=== PATIENT | female | born 1980 | race African-American/Black ===

== ENCOUNTER 2017-07-01 00:47 | Inpatient (IN) | payer OTHER ==
[~2017-07-01 00:47] MED LIST: DEXTROSE 5%-LACTATED RINGERS 500 ML IV ONE
[2017-07-01] MEDS ORDERED: DEXTROSE 5%-LACTATED RINGERS 500 ML IV ONE (01:47)
[2017-07-01 07:27] LABS: BASOPHIL 0.5 % (0-2.0); EOSINOPHIL 0.7 % (0-4.5); MCH 28.8 pg (25.7-33.7); MCHC 33.4 g/dl (32.0-36.0); MEAN CELL VOLUME 86.2 fl (80-96); MEAN PLT VOLUME 8.8 fl (7.5-11.1); NEUTROPHILS 68.5 % (42.8-82.8); PLATELET COUNT 193 K/MM3 (134-434); RDW 14.9 % (11.6-15.6); WHITE BLOOD COUNT 8.8 K/mm3 (4.0-10.0)
[2017-07-01 07:46] VITALS: BMI 35.4
[2017-07-01 08:07] LABS: ANION GAP 9 (8-16); CALCIUM 8.6 mg/dL (8.5-10.1); CO2 24 mmol/L (21-32); CREATININE 0.6 mg/dL (0.55-1.02); GLUCOSE,RANDOM 82 mg/dL (74-106)
[2017-07-01] MEDS ORDERED: MISOPROSTOL 100 MCG TABLET NR ONE (08:15)
[2017-07-01 08:19] LABS: ACTIVATED PTT 26.3 SECONDS (26.9-34.4); INR 0.96 (0.82-1.09); PROTHROMBIN TIME (PATIENT) 10.5 SEC (9.98-11.88)
[2017-07-01] MEDS: ACETAMINOPHEN 325 MG TABLET (FP) PO PRN ×2 (08:45→13:53)
[2017-07-01] MEDS: D5W-LR W/ 20 UNITS OXYTOCIN 1,000 ML IV SCH ×2 (08:45→14:46)
[2017-07-01] MEDS: IBUPROFEN 600 MG TABLET (FP) PO PRN ×2 (08:45→13:52)
--- NOTE | 2017-07-01 08:53 | HP ---
Past Medical History - Primary Care Physician PCP:: Nery Malloy - Admission Chief Complaint: 36yo P1 with clear PROM, +ctx, no VB, + FM History of Present Illness: 1.Class 1 obesity - Sleep study referred, early GCT negative Missed sleep study 2. history states SOM+ - negative Lupus w/up 3. Anemia - Iron BID 4. h/o Appendectomy 5. h/o 10lb 6.Tdap 06/15/17 History Source: Patient Limitations to Obtaining History: No Limitations - Past Medical History ...: 2 ...Para: 1 ...Term: 1 ...: 0 ...Spon : 0 ...Induced : 0 ...Multiple Gestation: 0 ...LMP: 10/06/16 ... Weeks Gestation by Dates: 38.1 ...EDC by Dates: 07/13/17 ...EDC by Sono: 07/13/17 Heme/Onc: Yes: Anemia - Past Surgical History Past Surgical History: Yes: None, Appendectomy Hx Myomectomy: No Hx Transabdominal Cerclage: No - Smoking History Smoking history: Never smoked Have you smoked in the past 12 months: No - Alcohol/Substance Use Hx Alcohol Use: No Home Medications - Allergies Allergies/Adverse Reactions: Allergies Allergy/AdvReac Type Severity Reaction Status Date / Time No Known Allergies Allergy Verified 07/01/17 07:27 - Home Medications Home Medications: Ambulatory Orders Ascorbic Acid [Vitamin C -] 500 mg PO DAILY 07/01/17 Ferrous Gluconate [Iron] 256 mg PO DAILY 07/01/17 Vit No.130/Iron/FA [ Vitamins] 1 each PO DAILY 07/01/17 Review of Systems - Review of Systems Constitutional: reports: No Symptoms Eyes: reports: No Symptoms HENT: reports: No Symptoms Neck: reports: No Symptoms Cardiovascular: reports: No Symptoms Respiratory: reports: No Symptoms Genitourinary: reports: Other ([place] of clear fluid) Breasts: reports: No Symptoms Reported Musculoskeletal: reports: No Symptoms Integumentary: reports: No Symptoms Neurological: reports: No Symptoms Endocrine: reports: No Symptoms Hematology/Lymphatic: reports: No Symptoms Psychiatric: reports: No Symptoms Physical Exam - Maternity Vital Signs: Vital Signs Temperature 98.1 F 07/01/17 07:37 Pulse Rate 56 L 08/23/17 08:30 Respiratory Rate 20 07/01/17 08:30 Blood Pressure 129/66 07/01/17 08:30 O2 Sat by Pulse Oximetry (%) 100 07/01/17 08:30 Constitutional: Yes: Well Nourished, No Distress Eyes: Yes: WNL HENT: Yes: WNL Neck: Yes: WNL Cardiovascular: Yes: WNL Lungs: Clear to auscultation Breast(s): Yes: WNL - Abdominal Exam/OB Fundal Height: 38 Number of Fetuses: Single Presentation: Vertex Contractions: Yes Monitor Mode: External Heart Rate Location: Midline Category: I Accelerations: Uniform Decelerations: None - Vaginal Exam/OB Vaginal Bleediing: No Speculum Exam: No Dilatation (cm): deferr Amniotic Membrane Status: Ruptured Nitrazine Test: Positive Amniotic Fluid: Yes: Clear Presentation: Vertex/Position - Physical Exam Musculoskeletal: Yes: WNL Extremities: Yes: WNL Edema: No Integumentary: Yes: WNL ...Motor Strength: WNL Psychiatric: Yes: WNL - Labs Lab Results: CBC, BMP 07/01/17 01:00 07/01/17 01:45 Assessment/Plan 36 yo P1 @ 38.1 with PROM Fetus Category 1 GBS negative Admit to L&D Declines pain management IVF, Labs will augment with Pitocin as needed
[2017-07-01 08:59] LABS: ARTERIAL BLD GAS O2 SATURATION 37.2 % (90-98.9); ARTERIAL BLOOD GAS HCO3 23.4 meq/L (22-26); ARTERIAL BLOOD GAS PO2 19.4 mmHg (80-100)
[2017-07-01 09:00] LABS: ARTERIAL BLD GAS O2 SATURATION 80.3 % (90-98.9); ARTERIAL BLOOD GAS BASE EXCESS -3.1 meq/l (-2-2); ARTERIAL BLOOD GAS HCO3 20.3 meq/L (22-26); ARTERIAL BLOOD GAS PO2 35.3 mmHg (80-100)
[2017-07-01] MEDS ORDERED: SENNOSIDES/DOCUSATE COMBO (SENNA PLUS) TABLET (UD) PO PRN (09:12)
[2017-07-01] MEDS ORDERED: BENZOCAINE 28 GM HEMORRHOIDAL OINTMENT TP PRN (09:13)
[2017-07-01] MEDS ORDERED: BISACODYL 10 MG SUPP.RECT RC PRN (09:13)
[2017-07-01] MEDS ORDERED: WITCH HAZEL 50% (TUCKS) 40 PAD/JAR PAD TP PRN (09:14)
[2017-07-01] MEDS ORDERED: BENZOCAINE 20% 57 GM BOTTLE TP PRN (09:14)
[2017-07-01] MEDS ORDERED: METHYLERGONOVINE MALEATE 0.2 MG/1 ML AMP IM PRN (09:14)
[2017-07-01] MEDS ORDERED: DEXTROSE 5%-LACTATED RINGERS 500 ML IV SCH ×2 (09:45)
[2017-07-01] MEDS ORDERED: TUBERCULIN PPD 5 TU/0.1ML SYRINGE (IN PATIENT USE ONLY) ID ONE (10:00)
--- NOTE | 2017-07-02 01:59 | PN ---
Post Progress Note - Subjective Subjective: Patient without acute complaints. Reports tolerating oral intake without nausea or vomiting. Ambulating without dizziness. Denies fevers or chills. Pain well controlled with oral pain medication. without difficulty. Passing flatus. Post Day: 1 Type of Delivery: Vital Signs: Vital Signs Temperature 98.0 F 07/01/17 22:00 Pulse Rate 60 07/01/17 22:00 Respiratory Rate 18 07/01/17 22:00 Blood Pressure 106/39 07/01/17 22:00 O2 Sat by Pulse Oximetry (%) 100 07/01/17 21:00 Breast Exam: Yes: Soft. No: Cracked Nipples Uterus: Yes: Fundus Firm, Fundus below umbilicus Abdomen/GI: Yes: Abdomen soft, Passing flatus, Tolerating PO. No: Tender Lochia: Yes: Serosa Lochia, amount: Small Extremities: Yes: Calves non-tender. No: Edema Activity: Ambulating - Labs Labs: CBC WBC 8.8 K/mm3 (4.0-10.0) 07/01/17 01:00 RBC 3.98 M/mm3 (3.60-5.2) 07/01/17 01:00 Hgb 11.5 GM/dL (10.7-15.3) 07/01/17 01:00 Hct 34.3 % (32.4-45.2) 07/01/17 01:00 MCV 86.2 fl (80-96) 07/01/17 01:00 MCH 28.8 pg (25.7-33.7) 07/01/17 01:00 MCHC 33.4 g/dl (32.0-36.0) 07/01/17 01:00 RDW 14.9 % (11.6-15.6) 07/01/17 01:00 Plt Count 193 K/MM3 (134-434) 07/01/17 01:00 MPV 8.8 fl (7.5-11.1) 07/01/17 01:00 Neutrophils % 68.5 % (42.8-82.8) 07/01/17 01:00 Lymphocytes % 22.3 % (8-40) 07/01/17 01:00 Monocytes % 8.0 % (3.8-10.2) 07/01/17 01:00 Eosinophils % 0.7 % (0-4.5) 07/01/17 01:00 Basophils % 0.5 % (0-2.0) 07/01/17 01:00 Laboratory Tests 07/02/17 07:30 Hgb 10.5 L Hct 31.8 L Assessment/Plan 36 yo PPD # 1 s/p , afebrile, vital signs stable, doing well 1. Continue routine care. 2. AM CBC stable 3. Rh positive status, no rhogam indicated. 4. Encourage ambulation 5. Continue oral pain medication 6. Anticipate discharge home day #2
[2017-07-02 08:41] LABS: BASOPHIL 0.3 % (0-2.0); EOSINOPHIL 0.8 % (0-4.5); MCH 28.6 pg (25.7-33.7); MCHC 32.9 g/dl (32.0-36.0); MEAN PLT VOLUME 8.6 fl (7.5-11.1); NEUTROPHILS 76.2 % (42.8-82.8); PLATELET COUNT 166 K/MM3 (134-434); RDW 14.8 % (11.6-15.6); WHITE BLOOD COUNT 12.1 K/mm3 (4.0-10.0)
[2017-07-02] MEDS ORDERED: DIPHTH,PERTUSS(ACELL),TET 0.5 ML DISP.SYRIN IM ONE (10:00)
[2017-07-02] MEDS: IBUPROFEN 600 MG TABLET (FP) PO PRN (14:02)
[2017-07-02] MEDS: ACETAMINOPHEN 325 MG TABLET (FP) PO PRN (14:03)
[2017-07-03 12:25] VITALS: BP 109/64; PULSE 77; TEMP 98.3
--- NOTE | 2017-07-28 12:49 | DS ---
Physical Exam-[employer]ICE [employer]IST Vital Signs: Vital Signs Temperature 98.3 F 07/03/17 10:00 Pulse Rate 77 07/03/17 10:00 Respiratory Rate 20 07/03/17 10:00 Blood Pressure 109/64 07/03/17 10:00 O2 Sat by Pulse Oximetry (%) 100 07/01/17 21:00 Constitutional: Yes: Well Nourished HENT: Yes: WNL Neck: Yes: WNL Cardiovascular: Yes: WNL Respiratory: Yes: WNL Gastrointestinal: Yes: WNL, Normal Bowel Sounds, Soft Pelvis: Yes: WNL External Genitalia: Yes: Normal Vaginal Exam: Yes: Normal ....Post : Yes: Uterus firm, Uterus non-tender Breast(s): Yes: WNL Musculoskeletal: Yes: WNL Extremities: Yes: WNL Integumentary: Yes: WNL Neurological: Yes: WNL ...Motor Strength: WNL Labs: CBC, BMP 07/02/17 07:30 07/01/17 01:45 Delivery - Delivery Vaginal Delivery: No Problems Type of Anesthesia: None Episiotomy/Laceration: None EBL (cc): 500 Delivery, Single - Stages of Labor Date 1st Stage Initiatied: 07/01/17 Time 1st Stage Initiated: 00:00 Date 2nd Stage Initiated: 07/01/17 Time 2nd Stage Initiated: 06:35 Date of Delivery: 07/01/17 Time of Delivery: 06:41 Time Placenta Delivered: 06:45 - 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 Gender: Male Weight: 6 lb 12 oz Position: OA Total Hours ROM (Hrs/Mins): 6hrs 45min - 1 Minute Total Score: 9 5 Minutes Total Score: 9 - Feeding Plan Initial Plan: Elected not to breastfeed exclusively throughout hospitalization Discharge Summary Reason For Visit: LABOR Condition: Good - Instructions Diet, Activity, Other Instructions: regular diet, follow up office 4 weeks Referrals: Nery Malloy MD [Staff Physician] - Disposition: HOME - Home Medications Comprehensive Discharge Medication List: Ambulatory Orders Ascorbic Acid [Vitamin C -] 500 mg PO DAILY 07/01/17 Ferrous Gluconate [Iron] 256 mg PO DAILY 07/01/17 Vit No.130/Iron/FA [ Vitamins] 1 each PO DAILY 07/01/17 Ibuprofen [Motrin -] 600 mg PO TID #30 tablet 07/02/17
== END 2017-07-03 12:15 | disposition home or self-care (01) | DRG 560 ==
LOC: JLDR 00:47 → J3W 09:26
PROVIDERS: ADMIT Obstetrics & Gynecology; ATTEND Obstetrics & Gynecology
PROC: 10E0XZZ Delivery of Products of Conception, External Approach (ICD-10-PCS; principal; 2017-07-01)
DX: O42.92 Full-term premature rupture of membranes, unspecified as to length of time between rupture and onset of labor (principal); O99.214 Obesity complicating childbirth; E66.8 Other obesity; Z68.35 Body mass index [BMI] 35.0-35.9, adult; O99.02 Anemia complicating childbirth; Z3A.38 38 weeks gestation of pregnancy; Z37.0 Single live birth
CPT/HCPCS: 36415; 36600; 59409; 80048; 82803; 85025; 85610; 85730; 86593; 86850; 86900; 86901

== ENCOUNTER 2021-03-01 08:22 | Inpatient (IN) | payer OTHER ==
[2021-03-01] MEDS ORDERED: ELECTROLYTE-148 SOLN 1,000 ML IV SCH (09:15)
[2021-03-01] MEDS ORDERED: OXYTOCIN 30 UNITS in 0.9% NS 30 UNIT/500 ML INFUS.BAG IVPB SCH (09:15)
[2021-03-01] MEDS ORDERED: AMPICILLIN - 2 GM in SODIUM CHLORIDE 100 ML IVPB ONE (10:00)
[2021-03-01 10:20] VITALS: BMI 35.3
[2021-03-01 10:22] LABS: BASO % 0.4 % (0-2.0); EOS % 0.9 % (0-4.5); HEMATOCRIT 33.6 % (32.4-45.2); HEMOGLOBIN 11.6 GM/dL (10.7-15.3); LYMPH % 20.2 % (8-40); MCH 29.7 pg (25.7-33.7); MCHC 34.5 g/dl (32.0-36.0); MEAN CELL VOLUME 86.1 fl (80-96); MEAN PLT VOLUME 8.6 fl (7.5-11.1); MONO % 7.4 % (3.8-10.2); NEUT % 71.1 % (42.8-82.8); PLATELET COUNT 208 K/MM3 (134-434); RDW 14.1 % (11.6-15.6); WHITE BLOOD COUNT 6.9 K/mm3 (4.0-10.0)
[2021-03-01 10:31] LABS: INR 0.97 (0.83-1.09); PROTHROMBIN TIME (PATIENT) 11.7 SEC (9.7-13.0)
[2021-03-01 10:34] LABS: ACTIVATED PTT 28.2 SECONDS (25.2-36.5)
[2021-03-01] MEDS ORDERED: AMPICILLIN SODIUM 2 GM VIAL ONE (10:42)
[2021-03-01] MEDS ORDERED: OXYTOCIN 30 UNITS in 0.9% NS 30 UNIT/500 ML INFUS.BAG IVPB ONE (10:42)
[2021-03-01 10:49] LABS: CALCIUM 8.4 mg/dL (8.5-10.1)
[2021-03-01 10:50] LABS: BLOOD UREA NITROGEN 6.8 mg/dL (7-18)
[2021-03-01 10:53] LABS: CREATININE 0.6 mg/dL (0.55-1.3)
[2021-03-01] MEDS: AMPICILLIN - 1 GM in SODIUM CHLORIDE 100 ML IVPB SCH ×2 (14:00→18:03)
[2021-03-01] MEDS ORDERED: OXYTOCIN 20 UNITS in 0.9% NS 20 UNIT/1,000 ML INFUS.BAG IV ONE (14:08)
[2021-03-01] MEDS ORDERED: AMPICILLIN SODIUM 1 GM VIAL ONE (14:10)
[2021-03-01] MEDS ORDERED: BISACODYL 10 MG SUPP.RECT RC PRN (14:40)
[2021-03-01] MEDS ORDERED: BENZOCAINE 28 GM HEMORRHOIDAL OINTMENT TP PRN (14:40)
[2021-03-01] MEDS ORDERED: BENZOCAINE 20% 57 GM BOTTLE TP PRN (14:40)
[2021-03-01] MEDS ORDERED: METHYLERGONOVINE MALEATE 0.2 MG/1 ML AMP IM PRN (14:40)
[2021-03-01] MEDS ORDERED: WITCH HAZEL 50% (TUCKS) 40 PAD/JAR PAD TP PRN (14:40)
[2021-03-01] MEDS ORDERED: OXYTOCIN 20 UNITS in 0.9% NS 20 UNIT/1,000 ML INFUS.BAG IV SCH (14:45)
[2021-03-01 15:26] LABS: HIV INTERPRETATION NEGATIVE (NEGATIVE)
[2021-03-01 15:29] LABS: CORD BASE EXCESS -1.2 mmol/L (0-2); CORD HCO3 25.3 mmHg (20-29); CORD PCO2 48.9 mmHg (30-78); CORD pH 7.332 (7.14-7.44)
[2021-03-01 15:34] LABS: CORD BASE EXCESS -2.1 mmol/L (0-2); CORD HCO3 21.5 mmHg (20-29); CORD PCO2 34.3 mmHg (30-78); CORD pH 7.416 (7.14-7.44)
[2021-03-01] MEDS: IBUPROFEN 600 MG TABLET (FP) PO PRN (17:29)
[2021-03-01] MEDS: ACETAMINOPHEN 325 MG TABLET (FP) PO PRN (17:29)
[2021-03-02 06:00] LABS: BASO % 0.4 % (0-2.0); EOS % 0.9 % (0-4.5); HEMATOCRIT 29.2 % (32.4-45.2); LYMPH % 18.1 % (8-40); MCH 29.4 pg (25.7-33.7); MCHC 34.2 g/dl (32.0-36.0); MEAN CELL VOLUME 85.8 fl (80-96); MEAN PLT VOLUME 8.2 fl (7.5-11.1); MONO % 7.4 % (3.8-10.2); NEUT % 73.2 % (42.8-82.8); PLATELET COUNT 161 K/MM3 (134-434); RDW 14.2 % (11.6-15.6); WHITE BLOOD COUNT 10.3 K/mm3 (4.0-10.0)
[2021-03-02] MEDS: PRENATAL VITAMINS W/ FOLIC ACID TABLET (FP) PO SCH (10:48)
[2021-03-02] MEDS ORDERED: SENNOSIDES/DOCUSATE COMBO (SENNA PLUS) TABLET (UD) PO PRN (22:00)
[2021-03-03] MEDS: IBUPROFEN 600 MG TABLET (FP) PO PRN (09:07)
[2021-03-03] MEDS: PRENATAL VITAMINS W/ FOLIC ACID TABLET (FP) PO SCH (09:07)
[2021-03-03] MEDS: ACETAMINOPHEN 325 MG TABLET (FP) PO PRN (09:07)
[2021-03-03 09:58] VITALS: BP 111/62; PULSE 64; TEMP 98
[2021-03-04 08:44] LABS: POC NITRAZINE POS
== END 2021-03-03 14:10 | disposition home or self-care (01) | DRG 560 ==
LOC: JLDR 08:22 → J3W 16:16
PROVIDERS: ADMIT Obstetrics & Gynecology; ATTEND Obstetrics & Gynecology
PROC: 10E0XZZ Delivery of Products of Conception, External Approach (ICD-10-PCS; principal; 2021-03-01)
PROC: 3E033VJ Introduction of Other Hormone into Peripheral Vein, Percutaneous Approach (ICD-10-PCS; 2021-03-01)
DX: O48.0 Post-term pregnancy (principal); O36.63X0 Maternal care for excessive fetal growth, third trimester, not applicable or unspecified; O99.214 Obesity complicating childbirth; E66.9 Obesity, unspecified; O90.81 Anemia of the puerperium; D64.9 Anemia, unspecified; Z3A.40 40 weeks gestation of pregnancy; Z37.0 Single live birth
CPT/HCPCS: 36415; 36600; 59409; 80048; 82803; 83986-QW; 85025; 85610; 85730; 86780; 86850; 86900; 86901; 87389